=== PATIENT | male | born 1990 | race Two or more races ===

== ENCOUNTER 2024-07-26 22:09 | Emergency (ER) | payer MEDICAID, OTHER ==
[~2024-07-26] VITALS: Ht 185.4 cm; Wt 74.0 kg
[2024-07-26 22:49] VITALS: TEMP 36.7; O2SAT 99
[2024-07-27] MEDS ORDERED: CEPH500C2 MT (01:49)
[2024-07-27 02:06] VITALS: BP 107/65; PULSE 64; RESP 12; O2SAT 99
== END 2024-07-27 02:05 | disposition home or self-care (01) ==
LOC: ER 22:09
DX: S61.210D Laceration without foreign body of right index finger without damage to nail, subsequent encounter (principal); J45.909 Unspecified asthma, uncomplicated; Z90.49 Acquired absence of other specified parts of digestive tract; W23.0XXD Caught, crushed, jammed, or pinched between moving objects, subsequent encounter
CPT/HCPCS: 99283; Z7610; A6449